=== PATIENT | female | born 1970 | race Caucasian/White ===

== ENCOUNTER 2017-09-04 20:50 | Emergency (ER) | payer BC ==
[2017-09-04 20:57] VITALS: BP 111/58; PULSE 60; TEMP 98.1; BMI 20.3
[2017-09-04 21:20] LABS: PH,URINE 6.5 (4.5-8); URINE APPEARANCE Clear; URINE BILIRUBIN Negative (NEGATIVE); URINE BLOOD Negative (NEGATIVE); URINE GLUCOSE (UA) Negative (NEGATIVE); URINE KETONE Negative (NEGATIVE); URINE LEUK ESTERASE Negative (NEGATIVE); URINE NITRITE Negative (NEGATIVE); URINE PROTEIN Negative (NEGATIVE); URINE UROBILINOGEN 0.2 (0.2-1.0)
[2017-09-04 21:21] LABS: URINE COLOR YELLOW
[2017-09-04 21:25] LABS: BASOPHIL 1.5 % (0-2.0); EOSINOPHIL 0.9 % (0-4.5); MCH 30.5 pg (25.7-33.7); MCHC 33.9 g/dl (32.0-36.0); MEAN CELL VOLUME 89.9 fl (80-96); MEAN PLT VOLUME 7.9 fl (7.5-11.1); NEUTROPHILS 58.3 % (42.8-82.8); PLATELET COUNT 252 K/MM3 (134-434); RDW 12.5 % (11.6-15.6); WHITE BLOOD COUNT 6.1 K/mm3 (4.0-10.8)
--- NOTE | 2017-09-04 21:30 | PDOC ---
History of Present Illness - General Chief Complaint: Pain Stated Complaint: ABD PAIN, NAUSEA Time Seen by Provider: 09/04/17 21:18 Past History - Past Medical History Allergies/Adverse Reactions: Allergies Allergy/AdvReac Type Severity Reaction Status Date / Time No Known Allergies Allergy Verified 09/04/17 20:51 Home Medications: Ambulatory Orders NK [No Known Home Medication] 09/04/17 Anemia: Yes (LOW IRON) Asthma: Yes (EXERCISE INDUCED WHEN PT. 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) CVA: No COPD: No CHF: No Dementia: No Diabetes: No GI Disorders: Yes (GASTRIC ULCERS, GERD) Disorders: No HTN: No Hypercholesterolemia: No Liver Disease: No Seizures: No Thyroid Disease: No - Surgical History Abdominal Surgery: No Appendectomy: No Cardiac Surgery: No Cholecystectomy: No Lung Surgery: No Neurologic Surgery: No Orthopedic Surgery: No - Suicide/Smoking/Psychosocial Hx Smoking History: Never smoked Have you smoked in the past 12 months: No Information on smoking cessation initiated: No Hx Alcohol Use: No Drug/Substance Use Hx: No Substance Use Type: None Hx Substance Use Treatment: No *Physical Exam - Vital Signs Last Vital Signs Temp Pulse Resp BP Pulse Ox 98.1 F 60 18 111/58 100 09/04/17 20:50 09/04/17 20:50 09/04/17 20:50 09/04/17 20:50 09/04/17 20:50 ED Treatment Course - LABORATORY CBC & Chemistry Diagram: 09/04/17 21:10 09/04/17 21:10 - ADDITIONAL ORDERS Additional order review: Laboratory Results 09/04/17 21:10 Urine Color Yellow Urine Appearance Clear Urine pH 6.5 Ur Specific [place] 1.015 Urine Protein Negative Urine Glucose (UA) Negative Urine Ketones Negative Urine Blood Negative Urine Nitrite Negative Urine Bilirubin Negative Urine Urobilinogen 0.2 Ur Leukocyte Esterase Negative 09/04/17 21:10 RBC 4.67 MCV 89.9 MCHC 33.9 RDW 12.5 MPV 7.9 Neutrophils % 58.3 Lymphocytes % 29.6 Monocytes % 9.7 Eosinophils % 0.9 Basophils % 1.5 *DC/Admit/Observation/Transfer - Discharge Dispostion Condition at time of disposition: Stable
[2017-09-04 21:40] LABS: ALK PHOS 44 U/L (32-92); ANION GAP 4 (8-16); BILIRUBIN,TOTAL 0.8 mg/dl (0.2-1.0); CALCIUM 9.3 mg/dl (8.4-10.2); CO2 30 mmol/L (22-28); CREATININE 0.7 mg/dl (0.6-1.3); GLUCOSE,RANDOM 82 mg/dl (74-106); SGOT/AST 31 U/L (10-42); SGPT/ALT 25 U/L (10-40); TOT PROT 6.8 g/dl (6.4-8.3)
--- NOTE | 2017-09-04 21:57 | PDOC ---
History of Present Illness - General Chief Complaint: Pain Stated Complaint: ABD PAIN, NAUSEA Time Seen by Provider: 09/04/17 21:18 History Source: Patient Exam Limitations: No Limitations - History of Present Illness Initial Comments: 09/04/17 21:50 The patient is a 61 year old male with a significant past medical of HTN, HLD, GERD, heart disease s/p open heart surgery 5 years ago, bleeding ulcer, who presents to the ED with worsening epigastric pain that began 2 weeks ago. Patient describes the pain as burning and radiating throughout the abdomen. Patient states the pain is constant and a 5/10 in severity. Patient states the pain dissipates when he eats or has tums but does not disappear. He states he had an episode of bright red stool this morning, but this is common for him. Patient denies chest pain, fever, chills, nausea, vomiting, diarrhea. Denies dysuria, frequency, hematuria. Patient also comes in stating he has had SOB with exercise and pain in both arms for the past few weeks. Patient states he saw his tong hooker recently and had a echo/stress test done that showed some irregularities that he has to follow up with. Scheduled for Cardiac Cath at [facility] on 09/15. Patient is a former smoker (stopped 7 years ago). Past History - Past Medical History Allergies/Adverse Reactions: Allergies Allergy/AdvReac Type Severity Reaction Status Date / Time No Known Allergies Allergy Verified 09/04/17 20:51 Home Medications: Ambulatory Orders NK [No Known Home Medication] 09/04/17 Anemia: Yes (LOW IRON) Asthma: Yes (EXERCISE INDUCED WHEN PT. 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) CVA: No COPD: No CHF: No Dementia: No Diabetes: No GI Disorders: Yes (GASTRIC ULCERS, GERD) Disorders: No HTN: No Hypercholesterolemia: No Liver Disease: No Seizures: No Thyroid Disease: No - Surgical History Abdominal Surgery: No Appendectomy: No Cardiac Surgery: No Cholecystectomy: No Lung Surgery: No Neurologic Surgery: No Orthopedic Surgery: No - Suicide/Smoking/Psychosocial Hx Smoking History: Never smoked Have you smoked in the past 12 months: No Information on smoking cessation initiated: No Hx Alcohol Use: No Drug/Substance Use Hx: No Substance Use Type: None Hx Substance Use Treatment: No Review of Systems - Review of Systems Able to Perform ROS?: Yes Comments:: 09/04/17 21:52 GENERAL/CONSTITUTIONAL: No fever or chills. No weakness. HEAD, EYES, EARS, NOSE AND THROAT: No change in vision. No ear pain or discharge. No sore throat. CARDIOVASCULAR: + SOB with exercise. No chest pain. RESPIRATORY: No cough, wheezing, or hemoptysis. GASTROINTESTINAL: + epigastric pain. + bloody stool. No nausea, vomiting, diarrhea or constipation. GENITOURINARY: No dysuria, frequency, or change in urination. MUSCULOSKELETAL: No joint or muscle swelling or pain. No neck or back pain. SKIN: No rash NEUROLOGIC: No headache, vertigo, loss of consciousness, or change in strength/ sensation. ENDOCRINE: No increased thirst. No abnormal weight change. HEMATOLOGIC/LYMPHATIC: No anemia, easy bleeding, or history of blood clots. ALLERGIC/IMMUNOLOGIC: No hives or skin allergy. *Physical Exam - Vital Signs Last Vital Signs Temp Pulse Resp BP Pulse Ox 98.1 F 60 18 111/58 100 09/04/17 20:50 09/04/17 20:50 09/04/17 20:50 09/04/17 20:50 09/04/17 20:50 - Physical Exam Comments: 09/04/17 21:55 GENERAL: Awake, alert, and fully oriented, in no acute distress HEAD: No signs of trauma EYES: PERRLA, EOMI, sclera anicteric, conjunctiva clear ENT: Auricles normal inspection, hearing grossly normal, nares patent, oropharynx clear without exudates. Moist mucosa NECK: Normal ROM, supple, no lymphadenopathy, JVD, or masses LUNGS: Breath sounds equal, clear to auscultation bilaterally. No wheezes, and no crackles HEART: Regular rate and rhythm, normal S1 and S2, no murmurs, rubs or gallops ABDOMEN: + mild epigastric tenderness and mild right upper quad tenderness without rebound or guarding. no Burnett sign. no masses. No nausea, vomiting, diarrhea or constipation. Soft, nontender, normoactive bowel sounds. EXTREMITIES: Normal range of motion, no edema. No clubbing or cyanosis. No cords, erythema, or tenderness NEUROLOGICAL: Cranial nerves II through XII grossly intact. Normal speech, normal gait SKIN: Warm, Dry, normal turgor, no rashes or lesions noted. ED Treatment Course - LABORATORY CBC & Chemistry Diagram: 09/04/17 21:10 09/04/17 21:10 - ADDITIONAL ORDERS Additional order review: Laboratory Results 09/04/17 09/04/17 21:10 21:10 Sodium 134 L Potassium 4.1 Chloride 100 Carbon Dioxide 30 H Anion Gap 4 L BUN 33 H Creatinine 0.7 Creat Clearance w eGFR > 60 Random Glucose 82 Calcium 9.3 Total Bilirubin 0.8 AST 31 ALT 25 Alkaline Phosphatase 44 Total Protein 6.8 Albumin 4.0 Lipase 39 Urine Color Yellow Urine Appearance Clear Urine pH 6.5 Ur Specific [place] 1.015 Urine Protein Negative Urine Glucose (UA) Negative Urine Ketones Negative Urine Blood Negative Urine Nitrite Negative Urine Bilirubin Negative Urine Urobilinogen 0.2 Ur Leukocyte Esterase Negative 09/04/17 21:10 RBC 4.67 MCV 89.9 MCHC 33.9 RDW 12.5 MPV 7.9 Neutrophils % 58.3 Lymphocytes % 29.6 Monocytes % 9.7 Eosinophils % 0.9 Basophils % 1.5 *DC/Admit/Observation/Transfer - Discharge Dispostion Condition at time of disposition: Stable - Attestations Scribe Attestion: 09/04/17 21:57 Documentation prepared by Johny Abdul, acting as diploma medical assistant for Nancy Huang MD.
[2017-09-04] MEDS ORDERED: PANTOPRAZOLE SODIUM 40 MG in SODIUM CHLORIDE 100 ML IVPB ONE (22:43)
[2017-09-04] MEDS ORDERED: PANTOPRAZOLE SODIUM 40 MG VIAL ONE (22:44)
--- NOTE | 2017-09-07 01:37 | PDOC ---
History of Present Illness - General Chief Complaint: Pain Stated Complaint: ABD PAIN, NAUSEA Time Seen by Provider: 09/04/17 21:18 - History of Present Illness Initial Comments: This 47-year-old woman with a history of H. pylori in 2010 presents with epigastric pain/nausea reminiscent of her previous gastric symptoms for the last 2-3 days. Approximately 4 days ago, patient took several doses of nonsteroidal anti-inflammatory medication for pyriformis muscle pain. Within a day, she began to have discomfort in the epigastric region. In April of this year, the patient had Escherichia coli enterocolitis with another flareup of her gastritis pain. Patient has not been on any H2 cachorro or PPI in several months. She does have a project economist but was not able to schedule appointment for several days. She denies significant vomiting; blood or coffee ground emesis. no black or bloody stools. Past History - Past Medical History Allergies/Adverse Reactions: Allergies Allergy/AdvReac Type Severity Reaction Status Date / Time No Known Allergies Allergy Verified 09/04/17 20:51 Home Medications: Ambulatory Orders Pantoprazole Sodium [Protonix -] 40 mg PO DAILY #20 tablet.ec 09/04/17 Anemia: Yes (LOW IRON) Asthma: Yes (EXERCISE INDUCED WHEN PT. 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) CVA: No COPD: No CHF: No Dementia: No Diabetes: No GI Disorders: Yes (GASTRIC ULCERS, GERD) Disorders: No HTN: No Hypercholesterolemia: No Liver Disease: No Seizures: No Thyroid Disease: No - Surgical History Abdominal Surgery: No Appendectomy: No Cardiac Surgery: No Cholecystectomy: No Lung Surgery: No Neurologic Surgery: No Orthopedic Surgery: No - Suicide/Smoking/Psychosocial Hx Smoking History: Never smoked Have you smoked in the past 12 months: No Information on smoking cessation initiated: No Hx Alcohol Use: No Drug/Substance Use Hx: No Substance Use Type: None Hx Substance Use Treatment: No Review of Systems - Review of Systems Able to Perform ROS?: Yes Comments:: 12 point review of systems is negative except for what is noted in the history of present illness *Physical Exam - Vital Signs Last Vital Signs Temp Pulse Resp BP Pulse Ox 98.1 F 60 18 111/58 100 09/04/17 20:50 09/04/17 20:50 09/04/17 20:50 09/04/17 20:50 09/04/17 20:50 - Physical Exam Comments: GENERAL: Adult female, alert and oriented in NAD HEAD: Normal with no signs of trauma. EYES: PERRLA, EOMI, sclera anicteric, conjunctiva clear. ENT: Ears normal, nares patent, oropharynx clear without exudates. Dry mucous membranes. NECK: Normal range of motion, supple without lymphadenopathy, JVD, or masses. LUNGS: Breath sounds equal, clear to auscultation bilaterally. No wheezes, and no crackles. HEART:Regular rate and rhythm, normal S1 and S2 without murmur, rub or gallop. ABDOMEN:.normal bowel sounds Mild epigastric tenderness without guarding, rebound or masses EXTREMITIES: Normal range of motion, no edema. No clubbing or cyanosis. No erythema, or tenderness. NEUROLOGICAL: Cranial nerves II through XII grossly intact. Normal speech. No focal neurological deficits. MUSCULOSKELETAL: Back non-tender to palpation, no CVA tenderness SKIN: Warm, Dry, normal turgor, no rashes or lesions noted. ED Treatment Course - LABORATORY CBC & Chemistry Diagram: 09/04/17 21:10 09/04/17 21:10 - ADDITIONAL ORDERS Additional order review: 09/04/17 21:10 RBC 4.67 MCV 89.9 MCHC 33.9 RDW 12.5 MPV 7.9 Neutrophils % 58.3 Lymphocytes % 29.6 Monocytes % 9.7 Eosinophils % 0.9 Basophils % 1.5 - Medications Given in the ED: ED Medications Discontinued Medications Generic Name Dose Route Start Last Admin Trade Name Maxwellq PRN Reason Stop Dose Admin Pantoprazole Sodium 40 mg/ 100 mls @ 200 mls/hr 09/04/17 22:43 09/04/17 22:50 Sodium Chloride IVPB 09/04/17 23:12 200 mls/hr ONCE ONE Administration Progress Note - Progress Note Progress Note: Patient given 40mg Protonix IV . Patient felt significant relief after Protonix. Prescription for protonix 40mg daily transmitted to pharmacy. She should return to ER if pain worsens or she has bleeding/black stools. Otherwise, she should followup with her project economist within the next 5 days *DC/Admit/Observation/Transfer Diagnosis at time of Disposition: Peptic ulcer - Discharge Dispostion Disposition: HOME Condition at time of disposition: Stable - Prescriptions Prescriptions: Pantoprazole Sodium [Protonix -] 40 mg PO DAILY #20 tablet.ec - Referrals - Patient Instructions Printed Discharge Instructions: Peptic Ulcer Additional Instructions: call your project economist in AM to arrange followup Protonix 40mg daily dietary modification as previously return if pain is severe or you have vomiting - Post Discharge Activity
== END 2017-09-04 23:14 | disposition home or self-care (01) ==
LOC: FER 20:50
PROC: 3E033GC Introduction of Other Therapeutic Substance into Peripheral Vein, Percutaneous Approach (ICD-10-PCS; principal; 2017-09-04)
DX: R10.9 Unspecified abdominal pain (principal)
CPT/HCPCS: 36415; 80053; 81003; 83690; 85025; 99283-25

== ENCOUNTER 2018-01-13 13:52 | Emergency (ER) | payer BC ==
[2018-01-13 14:10] VITALS: BP 108/60; PULSE 68; TEMP 98.9
--- NOTE | 2018-01-13 14:57 | PDOC ---
History of Present Illness <Mckinley Cross - Last Filed: 01/13/18 14:59> - History of Present Illness Initial Comments: 01/13/18 15:11 Patient is a 47 F, with PMHx of previous bronchitis, 2nd hand smoke as a child, GERD, presents today for lump in her throat and cough for 1 week. Patient states that she began experiencing a pleuritic cough (green sputum) 1 week ago. She started taking left over Levaquin for 4 days. She saw her PCP 2 days ago, had a chest x-ray done, and was positive for pneumonia. She was given Azithromycin and took it on and Monday but she began feeling a lump in her throat and experienced trouble breathing upon exertion so she stopped taking it. She called her PCP who told her to stop taking the Azithromycin because of a possible allergic reaction and to come to the ER. She also reports some nausea when she had her cough but it has currently resolved. Social Hx: Denies EtOH and tobacco use. But she reports second hand smoke as a child (parents would smoke 2 packs a day in the house) Family Hx: Mother (Emphysema, ) Father (COPD , alive) Allergies: denies PCP: Dr. Bruno <Jocelyn Chiu - Last Filed: 01/13/18 15:26> - General Chief Complaint: Choking Sensation Stated Complaint: FEELS LIKE I HAVE SOMETHING IN MY THROAT. Time Seen by Provider: 01/13/18 14:19 Past History - Past Medical History Anemia: Yes (LOW IRON) Asthma: Yes (EXERCISE INDUCED WHEN PT. 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) CVA: No COPD: No CHF: No Dementia: No Diabetes: No GI Disorders: Yes (GASTRIC ULCERS, GERD) Disorders: No HTN: No Hypercholesterolemia: No Liver Disease: No Seizures: No Thyroid Disease: No - Surgical History Abdominal Surgery: No Appendectomy: No Cardiac Surgery: No Cholecystectomy: No Lung Surgery: No Neurologic Surgery: No Orthopedic Surgery: No - Suicide/Smoking/Psychosocial Hx Smoking History: Never smoked Have you smoked in the past 12 months: No If you are a former smoker, when did you quit?: second hand smoke growing up- both parents smoked Information on smoking cessation initiated: No Hx Alcohol Use: No Drug/Substance Use Hx: No Substance Use Type: None Hx Substance Use Treatment: No <Mckinley Cross - Last Filed: 01/13/18 14:59> <Jocelyn Chiu - Last Filed: 01/13/18 15:26> - Past Medical History Allergies/Adverse Reactions: Allergies Allergy/AdvReac Type Severity Reaction Status Date / Time No Known Allergies Allergy Verified 01/13/18 13:57 Home Medications: Ambulatory Orders Pantoprazole Sodium [Protonix -] 40 mg PO DAILY #20 tablet.ec 09/04/17 Cefuroxime Axetil [Ceftin -] 500 mg PO BID #14 tablet 01/13/18 Review of Systems - Review of Systems Comments:: 01/13/18 15:12 CONSTITUTIONAL: Absent: Fever, Chills, Diaphoresis, Generalized Weakness, Malaise, Loss of Appetite HEENT: Present: Throat pain, Absent: Rhinorrhea, Nasal Congestion, Throat Swelling, Difficulty Swallowing, Mouth Swelling, Ear Pain, Eye Pain, Visual Changes CARDIOVASCULAR: Absent: Chest Pain, Syncope, Palpitations, Irregular Heart Rate, Lightheadedness , Peripheral Edema RESPIRATORY: Present: Recent pleuritic cough with green sputum, SOB with exertion Absent: Orthopnea, Wheezing, Stridor, Hemoptysis GASTROINTESTINAL: Present: Nausea Absent: Abdominal pain, Abdominal Distension, Vomiting, Diarrhea, Constipation , Melena, Hematochezia GENITOURINARY: Absent: Dysuria, Frequency, Urgency, Hesitancy, Flank Pain, Genital Pain MUSCULOSKELETAL: Absent: Myalgia, Arthralgia, Joint Swelling, Back pain, Neck Pain SKIN: Absent: Rash, Itching, Pallor HEMATOLOGIC/IMMUNOLOGIC: Absent: Easy Bleeding, Easy Bruising, Lymphadenopathy, Frequent infections ENDOCRINE: Absent: Unexplained Weight Gain, Unexplained Weight Loss, Heat Intolerance, Cold Intolerance NEUROLOGIC: Absent: Headache, Focal Weakness, Paresthesias, Vertigo, Lightheadedness, Unsteady Gait, Seizure, Mental Status Changes, Incontinence PSYCHIATRIC: Absent: Anxiety, Depression 01/13/18 15:16 <Jocelyn Chiu - Last Filed: 01/13/18 15:26> *Physical Exam - Vital Signs Last Vital Signs Temp Pulse Resp BP Pulse Ox 98.9 F 68 18 108/60 3 L 01/13/18 13:58 01/13/18 13:58 01/13/18 13:58 01/13/18 13:58 01/13/18 13:58 <TayMckinley Milad - Last Filed: 01/13/18 14:59> - Vital Signs Last Vital Signs Temp Pulse Resp BP Pulse Ox 98.9 F 68 18 108/60 3 L 01/13/18 13:58 01/13/18 13:58 01/13/18 13:58 01/13/18 13:58 01/13/18 13:58 - Physical Exam Comments: 01/13/18 15:14 GENERAL: Speaking and swallowing without discomfort. Appearing fully well. The patient is awake, alert, and fully oriented, in no acute distress. HEAD: Normal with no signs of trauma. EYES: Pupils equal, round and reactive to light, extraocular movements intact, sclera anicteric, conjunctiva clear. ENT: Ears normal, Nasal membranes are erythematous, oropharynx clear without exudates. Moist mucous membranes. Uvula and tonsils appear normal NECK: Normal range of motion, supple without lymphadenopathy, JVD, or masses. No stridor. Swallows without discomfort. LUNGS: Breath sounds equal, clear to auscultation bilaterally. No wheezes, and no crackles. HEART: Regular rate and rhythm, normal S1 and S2 without murmur, rub or gallop. ABDOMEN: Soft, nontender, normoactive bowel sounds. No guarding, no rebound. No masses. EXTREMITIES: Normal range of motion, no edema. No clubbing or cyanosis. No cords , erythema, or tenderness. NEUROLOGICAL: Cranial nerves II through XII grossly intact. Normal speech, normal gait. PSYCH: Normal mood, normal affect. SKIN: Warm, Dry, normal turgor, no rashes or lesions noted. <Jocelyn Chiu - Last Filed: 01/13/18 15:26> ED Treatment Course - Medications Given in the ED: ED Medications Discontinued Medications Generic Name Dose Route Start Last Admin Trade Name Freq PRN Reason Stop Dose Admin Cefuroxime Axetil 500 mg 01/13/18 15:04 01/13/18 15:06 Ceftin - PO 01/13/18 15:05 Not Given ONCE ONE <Jocelyn Chiu - Last Filed: 01/13/18 15:26> Medical Decision Making - Medical Decision Making 01/13/18 14:59 Patient with history of secondhand smoke exposure as a child, episodic bronchitis typically once a year, presents with 1 week of cough with occasional yellow sputum. She was seen by her primary physician after having taken Levaquin on her own. She was switched to azithromycin which she took for 2 days , and today she has a sensation of globus in her throat. Her cough is better, and her pleuritic chest pain on coughing has resolved. Her chest x-ray 3 days ago showed some interstitial markings and she was told of possible pneumonia. On examination, she appears well and is afebrile. Nasal membranes have mild erythema without any discharge. Oropharynx is clear. Neck is without stridor and she is breathing and swallowing normally. Lungs are clear throughout without crackles or wheezes. The remainder of the examination is unremarkable. Impression: Recently diagnosed pneumonia started on azithromycin after having taken 4 days of Levaquin. Currently with a globus sensation in the throat. Normal voice, normal swallowing, normal oral examination and neck examination without signs of any ALLERGIC reaction. Impression is bronchitis and pneumonia , early on treatment. Antibiotic will be changed given possible reaction although this seems unlikely. Plan: Patient advised to increase fluids, stop azithromycin, take Ceftin 500 mg twice daily for 7 days. Patient advised to follow-up with her primary physician as previously instructed for follow-up chest x-ray in 4 weeks. <Mckinley Cross - Last Filed: 01/13/18 14:59> *DC/Admit/Observation/Transfer - Discharge Dispostion Admit: No <Mckinley Cross - Last Filed: 01/13/18 14:59> - Attestations Scribe Attestion: 01/13/18 15:17 Documentation prepared by Jocelyn Chiu, acting as medical translator for Mckinley Cross MD. <Jocelyn Chiu - Last Filed: 01/13/18 15:26> Diagnosis at time of Disposition: Pneumonia Qualifiers: Pneumonia type: due to unspecified organism Laterality: unspecified laterality Lung location: unspecified part of lung Qualified Code(s): J18.9 - Pneumonia, unspecified organism - Discharge Dispostion Disposition: HOME Condition at time of disposition: Good - Prescriptions Prescriptions: Cefuroxime Axetil [Ceftin -] 500 mg PO BID #14 tablet - Referrals Referrals: Javier Bruno MD [Staff Physician] - - Patient Instructions Printed Discharge Instructions: DI for Pneumonia -- Adult Additional Instructions: Today you were evaluated in follow-up for pneumonia that was diagnosed by Dr. Bruno a couple of days ago. You're also evaluated for a sensation of a lump in the throat. Your examination of the throat and lungs was normal. Your antibiotic will be changed. Stop azithromycin. Start Ceftin 500 mg twice a day for 7 days. Follow-up is Dr. Bruno instructed you for your repeat chest x- ray in 4 weeks. Return to the emergency department for any severe or progressive symptoms. Drink plenty of fluids to maintain good hydration.
[2018-01-13] MEDS ORDERED: CEFUROXIME AXETIL 500 MG TABLET PO ONE (15:04)
== END 2018-01-13 15:10 | disposition home or self-care (01) ==
LOC: FER 13:52
DX: J18.9 Pneumonia, unspecified organism (principal); K21.9 Gastro-esophageal reflux disease without esophagitis; Z77.22 Contact with and (suspected) exposure to environmental tobacco smoke (acute) (chronic)
CPT/HCPCS: 99282-25

== ENCOUNTER 2018-03-28 20:17 | Emergency (ER) | payer BC, OTHER ==
--- NOTE | 2018-03-28 20:26 | PDOC ---
History of Present Illness - General History Source: Patient Exam Limitations: No Limitations - History of Present Illness Initial Comments: The patient is a 47 year old female with a significant PMH of bronchitis, GERD , and H.pylori who presents to the emergency department with complaints of being unable to breathe since earlier today. The patient reports that she feels a lump in her throat that is causing this feeling. She reports that when she gets excited it becomes harder for her to breathe. The patient denies chest pain, headache or dizziness. She denies any fever, chills, nausea, vomit, diarrhea or constipation. The patient denies any urinary symptoms. She denies any other complaints. PAST MEDICAL HISTORY: bronchitis, GERD, and H.pylori PAST SURGICAL HISTORY: no significant history FAMILY HISTORY: no pertinent history SOCIAL HISTORY: Pt lives with family. The patient denies and alcohol or drug use. MEDICATIONS: reviewed ALLERGIES: As per nursing notes General: No fevers or chills, no weakness, no weight loss HEENT: No change in vision. No sore throat,. No ear pain CardioVascular: (+) shortness of breath No chest pain Respiratory:No cough, or wheezing. Gastrointestinal: no nausea, vomiting, diarrhea or constipation, No rectal bleeding Genitourinary: No dysuria, hematuria, or frequency Musculoskeletal: No joint or muscle pain or swelling Neurologic: No headache, vertigo, dizziness or loss of consciousness Psychiatric: nor depression Skin: No rashes or easy bruising Endocrine: no increased thirst or abnormal weight change Allergic: no skin or latex allergy All other systems reviewed and normal GENERAL: The patient is awake, alert, and fully oriented, in no acute distress. HEAD: Normal with no signs of trauma. EYES: Pupils equal, round and reactive to light, extraocular movements intact, sclera anicteric, conjunctiva clear. CHEST: Nontender to palpation EXTREMITIES: Normal range of motion, no edema. NEUROLOGICAL: Normal speech, normal gait. PSYCH: Normal mood, normal affect. SKIN: Warm, Dry, normal turgor, no rashes or lesions noted. <Graham Bennett - Last Filed: 03/28/18 20:52> - General History Source: Patient Exam Limitations: No Limitations - History of Present Illness Initial Comments: A portion of this note was documented by scribe services under my direction. I have reviewed the details of the note, within reason, and agree with the documentation. The case summary and management plan written by me. Reevaluation 2129 Patient feels better even though she spit out half of the pill. Patient said she 's not completely better but the breathing is fine and the lump in her throat is about half resolved. Patient discharged home will follow-up with her doctor <Theodora Carlos I - Last Filed: 03/28/18 21:24> - General Chief Complaint: Psychiatric Stated Complaint: FEELING ANXIOUS STATES SHE CAN'T BREATH Time Seen by Provider: 03/28/18 20:25 Past History <Graham Bennett - Last Filed: 03/28/18 20:52> - Immunization History Tetanus Status: Unknown - Social History Smoking Status: Never smoked <Theodora Carlos I - Last Filed: 03/28/18 21:24> - Past Medical History Allergies/Adverse Reactions: Allergies No Known Allergies Allergy (Verified 03/28/18 20:24) Home Medications: Ambulatory Orders NK [No Known Home Medication] 03/28/18 *Physical Exam - Vital Signs Last Vital Signs Temp Pulse Resp BP Pulse Ox 97.8 F 56 L 16 119/76 100 03/28/18 20:18 03/28/18 20:18 03/28/18 20:18 03/28/18 20:18 03/28/18 20:18 <Graham Bennett - Last Filed: 03/28/18 20:52> Plan - Order(s) Order(s): Orders Medication Instructions Recorded NK [No Known Home Medication] 03/28/18 - Medications Given in the ED: ED Medications Discontinued Medications Generic Name Dose Route Start Last Admin Trade Name Maxwellq PRN Reason Stop Dose Admin Alprazolam 0.25 mg 03/28/18 20:42 03/28/18 20:43 Xanax - PO 03/28/18 20:43 0.25 mg ONCE ONE Administration <Graham Bennett - Last Filed: 03/28/18 20:52> - Order(s) Order(s): Orders Medication Instructions Recorded NK [No Known Home Medication] 03/28/18 <Theodora Carlos I - Last Filed: 03/28/18 21:24> *DC/Admit/Observation/Transfer - Attestations Scribe Attestion: 03/28/18 20:52 Documentation prepared by Graham Bennett, acting as medical malpractice paralegal for Theodora Carlos MD. <Graham Bennett - Last Filed: 03/28/18 20:52> - Discharge Dispostion Decision to Admit order: No <Theodora Carlos I - Last Filed: 03/28/18 21:24> Diagnosis at time of Disposition: Anxiety - Discharge Dispostion Disposition: HOME Condition at time of disposition: Stable - Patient Instructions Additional Instructions: If symptoms become recurrent and persistent consider following up with a therapist. Return to the emergency department immediately with ANY new, persistent or worsening symptoms. Continue any medications as previously prescribed by your physician. You should follow up with your primary doctor as soon as possible regarding today's emergency department visit. . Please make sure your doctor reviews the results of your emergency evaluation. Thank you for coming to the Emergency Department today for your care. It was a pleasure to see you today. Please note that your evaluation is INCOMPLETE until you follow-up with your doctor.
[2018-03-28 20:34] VITALS: BP 119/76; PULSE 56; TEMP 97.8; BMI 19.7
[2018-03-28] MEDS ORDERED: ALPRAZolam 0.25 MG TABLET ONE (20:39)
[2018-03-28] MEDS ORDERED: ALPRAZolam 0.25 MG TABLET PO ONE (20:42)
== END 2018-03-28 21:47 | disposition home or self-care (01) ==
LOC: FER 20:17
DX: R06.00 Dyspnea, unspecified (principal); F41.9 Anxiety disorder, unspecified
CPT/HCPCS: 99282-25

== ENCOUNTER 2018-06-24 09:28 | Emergency (ER) | payer BC, OTHER ==
[2018-06-24 09:53] VITALS: BP 117/68; PULSE 75; TEMP 97.6
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
== END 2018-06-24 11:21 | disposition home or self-care (01) ==
LOC: JER 09:28
DX: H10.31 Unspecified acute conjunctivitis, right eye (principal); J40 Bronchitis, not specified as acute or chronic; R05 Cough
CPT/HCPCS: 71046-TC-FY; 84703; 99281-25

== ENCOUNTER 2019-04-13 18:21 | Emergency (ER) | payer OTHER ==
[2019-04-13 18:29] VITALS: BP 153/98; PULSE 62; TEMP 99.1; BMI 20.4
[2019-04-13] MEDS ORDERED: ALPRAZolam 1 MG TABLET PO PRN (18:40)
[2019-04-13] MEDS ORDERED: ALPRAZolam 0.25 MG TABLET ONE (18:40)
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
--- NOTE | 2019-04-16 11:32 | EKG ---
Test Reason : Blood Pressure : / mmHG Vent. Rate : 057 BPM Atrial Rate : 057 BPM P-R Int : 144 ms QRS Dur : 082 ms QT Int : 430 ms P-R-T Axes : 033 038 044 degrees QTc Int : 418 ms SINUS BRADYCARDIA WITH SINUS ARRHYTHMIA OTHERWISE NORMAL ECG NO PREVIOUS ECGS AVAILABLE Confirmed by Gael Cody MD ([id number]) on 04/16/2019 11:31:24 AM Referred By: JUN OSCAR Confirmed By:Gael Cody MD
== END 2019-04-13 20:01 | disposition home or self-care (01) ==
LOC: FER 18:21
DX: F41.9 Anxiety disorder, unspecified (principal); K21.9 Gastro-esophageal reflux disease without esophagitis; J45.909 Unspecified asthma, uncomplicated
CPT/HCPCS: 93005; 99282-25

== ENCOUNTER 2021-09-28 18:13 | Emergency (ER) | payer BC, OTHER ==
[2021-09-28 18:23] VITALS: BP 118/68; PULSE 53; TEMP 98; BMI 18.4
[2021-09-28] MEDS ORDERED: IBUPROFEN 400 MG TABLET (FP) PO ONE ×2 (19:00→19:01)
== END 2021-09-28 20:00 | disposition home or self-care (01) ==
LOC: JERFT 18:13
DX: M54.50 Low back pain, unspecified (principal)
CPT/HCPCS: 99284-25

== ENCOUNTER 2022-08-05 19:22 | Emergency (ER) | payer OTHER ==
[2022-08-05 19:27] VITALS: BP 108/76; PULSE 61; RESP 18; TEMP 98.1; BMI 20.3
[2022-08-05 21:23] LABS: PH,URINE 6.5 (5.0-8.0); URINE APPEARANCE CLEAR; URINE BILIRUBIN NEGATIVE (NEGATIVE); URINE COLOR YELLOW; URINE GLUCOSE (UA) NEGATIVE (NEGATIVE); URINE KETONE NEGATIVE (NEGATIVE); URINE LEUK ESTERASE NEGATIVE (NEGATIVE); URINE NITRITE NEGATIVE (NEGATIVE); URINE PROTEIN NEGATIVE (NEGATIVE); URINE UROBILINOGEN 0.2 mg/dL (0.2-1.0)
== END 2022-08-05 22:32 | disposition home or self-care (01) ==
LOC: JER 19:22
DX: R31.9 Hematuria, unspecified (principal)
CPT/HCPCS: 81003; 87086; 99283-25

== ENCOUNTER 2023-09-11 16:07 | Emergency (ER) | payer OTHER ==
[2023-09-11 16:35] VITALS: BP 102/74; PULSE 56; RESP 17; TEMP 98.4
[2023-09-11 17:52] LABS: BASO % 0.4 % (0-2.0); EOS % 0.9 % (0-4.5); HEMATOCRIT 37.4 % (32.4-45.2); HEMOGLOBIN 12.7 GM/dL (10.7-15.3); MCH 29.7 pg (25.7-33.7); MCHC 33.9 g/dl (32.0-36.0); MEAN CELL VOLUME 87.6 fl (80-96); MEAN PLT VOLUME 7.9 fl (7.5-11.1); NEUT % 61.7 % (42.8-82.8); PLATELET COUNT 277 10^3/uL (134-434); RBC 4.27 M/mm3 (3.60-5.2); RDW 13.5 % (11.6-15.6); WHITE BLOOD COUNT 4.9 K/mm3 (4.0-10.0)
[2023-09-11 17:59] LABS: INR 1.1 (0.83-1.09); PROTHROMBIN TIME (PATIENT) 12.8 SEC (9.7-13.0)
[2023-09-11 18:11] LABS: POTASSIUM 4.3 mmol/L (3.5-5.1)
[2023-09-11 18:13] LABS: CALCIUM 8.8 mg/dL (8.5-10.1)
[2023-09-11 18:14] LABS: ALBUMIN 3.6 g/dl (3.4-5.0); BLOOD UREA NITROGEN 29.5 mg/dL (7-18)
[2023-09-11 18:18] LABS: BILIRUBIN,TOTAL 0.3 mg/dL (0.2-1); TOT PROT 6.9 g/dl (6.4-8.2)
[2023-09-11] MEDS ORDERED: KETOROLAC TROMETHAMINE 15 MG/ML VIAL IVPUSH ONE (18:29)
[2023-09-11] MEDS ORDERED: KETOROLAC TROMETHAMINE 15 MG/ML VIAL ONE (18:36)
== END 2023-09-11 20:55 | disposition home or self-care (01) ==
LOC: JER 16:07
DX: R07.9 Chest pain, unspecified (principal); R06.02 Shortness of breath; F41.9 Anxiety disorder, unspecified; G56.02 Carpal tunnel syndrome, left upper limb
CPT/HCPCS: 36415; 71046-TC-FY; 80053; 84484; 85025; 85610; 85730; 93005; 93010; 99285-25

== ENCOUNTER 2023-12-19 08:21 | Emergency (ER) | payer OTHER ==
[2023-12-19 08:41] VITALS: BP 112/78; PULSE 78; RESP 18; TEMP 98.6; BMI 19.5
[2023-12-19] MEDS ORDERED: ALBUTEROL SO4 2.5/IPRATROPIUM 0.5 INH SOL 3 ML VIAL.NEB. NEB ONE ×2 (09:02→09:18)
== END 2023-12-19 10:51 | disposition home or self-care (01) ==
LOC: FER 08:21
PROC: 3E0F7GC Introduction of Other Therapeutic Substance into Respiratory Tract, Via Natural or Artificial Opening (ICD-10-PCS; principal; 2023-12-19)
DX: U07.1 COVID-19 (principal); J06.9 Acute upper respiratory infection, unspecified; R11.2 Nausea with vomiting, unspecified; R19.7 Diarrhea, unspecified; R05.9 Cough, unspecified; R09.81 Nasal congestion; Z20.822 Contact with and (suspected) exposure to COVID-19
CPT/HCPCS: 0241U-QW; 71046-TC-FY; 99284-25